=== PATIENT | male | born 1985 | race Caucasian/White ===

== ENCOUNTER 2016-05-12 17:43 | Emergency (ER) | payer OTHER ==
[~2016-05-12] VITALS: Ht 193 cm; Wt 152.1 kg
[2016-05-12 17:44] VITALS: TEMP 36.7; Ht 193 cm; Wt 152.1 kg
[2016-05-12] MEDS ORDERED: DEXAMETHASONE SOD INJ 4 MG/ML VIAL IV STA (19:00)
[2016-05-12] MEDS ORDERED: HYDROmorphone INJ 1 MG/ML SYR IV STA (19:00)
[2016-05-12 19:44] LABS: URINE APPEARANCE CLEAR (CLEAR); URINE BILIRUBIN NEG (NEG); URINE COLOR YELLOW; URINE NITRITE NEG (NEG); UROBILINOGEN NEG (NEG); ZZUR CULT IF INDIC CLEAN CATCH NO
[2016-05-12 19:45] LABS: MANUAL MICROSCOPIC REQUIRED? NO; REVIEW REQ? NO
[2016-05-12] MEDS ORDERED: OXYCODONE IR HOME PACK PO ONE (20:30)
[2016-05-12] MEDS ORDERED: OXYC1TAB3 PO (20:41)
[2016-05-12] MEDS ORDERED: PRED20TA PO (20:41)
--- NOTE | 2016-05-12 20:42 | EMERGENCY ROOM VISIT NOTE ---
ED Visit Note First contact with patient: 18:49 CHIEF COMPLAINT: Low back pain HISTORY OF PRESENT ILLNESS: This 30-year-old male patient presents to the emergency department ambulatory complaining of pain in the low back which began yesterday evening. The patient has a history of back problems and had a surgery performed by Dr. Collins 2 years ago. The patient reports that he developed lower right back pain with radiation into the right buttock and down the right leg last evening and it worsened today. He states this does feel similar to chronic back pain, but it is not as severe as it has been in the past. He rates his overall discomfort a 7/10 at this time. He has not taken anything at home for the pain. He does report he had a flareup of the pain 2 months ago which resolved with pain medication. The patient denies any loss of control of their bowel or bladder functions. There has been no leg numbness or weakness, and no change in sensation. No nausea or vomiting or abdominal pain. No chest pain or shortness of breath. No dysuria or increased urinary frequency. The patient denies any recent trauma. REVIEW OF SYSTEMS: A review of systems was performed with positives and pertinent negatives listed in the history of present illness. All other systems were reviewed and are negative. ALLERGIES: No known drug allergies MEDICATIONS: Fluoxetine, Zestril PMH: Lumbar surgery SOCIAL HISTORY: The patient lives locally with his parents. Nonsmoker, denies alcohol use. PHYSICAL EXAM: VITALS: Vitals are noted on the nurse's note and reviewed by myself. Vital signs stable. GENERAL: This is a 30-year-old male, in no acute distress, nondiaphoretic, well- developed well-nourished. SKIN: The skin was without rashes, erythema, edema, or bruising. Capillary refill less than 2 seconds. NECK: Supple without nuchal rigidity. No cervical spine tenderness. No paraspinous muscle tenderness. HEART: Regular rate and rhythm without murmurs gallops or rubs. LUNGS: Clear to auscultation bilaterally without wheezes, rales or rhonchi. ABDOMEN: Positive bowel sounds x 4. Normal tympanic percussion. Soft, nontender, without masses or organomegaly. Monique sign negative. MUSCULOSKELETAL: No muscle atrophy, erythema, or edema noted of the back. There is no tenderness over the lumbar spinous processes. There is mild tenderness over the right lumbar paraspinous muscles. There is no tenderness over the thoracic spine or paraspinous muscles. There are no muscle spasms present. The patient is slow to move around with maximum tenderness with flexion. Negative straight leg raise test. NEURO: Patient was alert and oriented to person place and time. Normal sensation to light and sharp touch. Deep tendon reflexes 2+ in the lower extremities. Dorsalis pedis pulse 2+ bilaterally. Strength 5/5 and equal in the bilateral lower extremities. EMERGENCY DEPARTMENT COURSE: The patient was evaluated as above. His pain appears to be musculoskeletal in nature. A urinalysis was obtained to rule out kidney stone and was negative. The patient was given 1 mg Dilaudid IM and 10 mg Decadron IM for pain. He will be discharged home with a prescription of pain medication as well as prednisone for his back pain. The [place] prescription drug monitoring program was queried and no red flags were identified. He was instructed to follow-up with Dr. Collins within one to 2 weeks for further evaluation of his back pain. There are no worrisome symptoms to suggest cauda equina syndrome or cord compression. The patient was instructed on worrisome symptoms which would necessitate return to the emergency department. He verbalized understanding of my assessment and treatment plan and was discharged home in good condition. DIAGNOSIS: Acute exacerbation of chronic low back pain Problem List Medical Problems: (1) Hypertension Status: Chronic Surgical Problems: (1) History of lumbar discectomy Status: Resolved Current/Historical Medications Scheduled Fluoxetine (Prozac), 20 MG PO DAILY Lisinopril (Zestril), 20 MG PO DAILY Prednisone (Prednisone), 0 PO DAILY Scheduled PRN Oxycodone Ir (Roxicodone Ir), 1-2 TAB PO Q4H PRN for Pain Allergies Coded Allergies: No Known Allergies (Unverified , 01/26/16) Vital Signs Date Time Temp Pulse Resp B/P Pulse Ox O2 Delivery O2 Flow Rate FiO2 05/12/16 21:25 83 18 127/62 95 05/12/16 19:43 72 18 142/62 96 Room Air 05/12/16 17:44 36.7 106 18 151/95 96 Room Air Laboratory Results Test 05/12/16 18:50 Urine Color YELLOW Urine Appearance CLEAR (CLEAR) Urine pH 6.0 (4.5-7.5) Urine Specific [place] 1.020 (1.000-1.030) Urine Protein NEG (NEG) Urine Glucose (UA) NEG (NEG) Urine Ketones NEG (NEG) Urine Occult Blood NEG (NEG) Urine Nitrite NEG (NEG) Urine Bilirubin NEG (NEG) Urine Urobilinogen NEG (NEG) Urine Leukocyte Esterase NEG (NEG) Medications Administered Medications (Trade) Dose Ordered Sig/Charlie Route Start Time Stop Time Status Last Admin Dose Admin Dexamethasone Sodium Phosphate (Decadron Inj) 10 mg NOW STAT IV 05/12/16 19:00 05/12/16 19:02 DC 05/12/16 19:40 10 MG Hydromorphone HCl (Dilaudid Inj) 1 mg NOW STAT IV 05/12/16 19:00 05/12/16 19:02 DC 05/12/16 19:35 1 MG Oxycodone HCl (Roxicodone Immediate Rel 5MG Home Pack) 1 homepack UD ONCE PO 05/12/16 20:30 05/12/16 20:31 DC 05/12/16 20:30 1 HOMEPACK Departure Information Dispostion Home / Self-Care Condition GOOD Prescriptions Oxycodone Ir (Roxicodone Ir) 5 Mg Tab 1-2 TAB PO Q4H Y for Pain, #15 TAB For Initial Treatment Prov: Tali Beth PA-C 05/12/16 Prednisone (Prednisone) 20 Mg Tab 0 PO DAILY, #18 TAB 3 DAILY FOR 3 DAYS, THEN 2 DAILY FOR 3 DAYS, THEN 1 DAILY FOR 3 DAYS. Prov: Tali Beth PA-C 05/12/16 Referrals Roger Woo D.O. (PCP) Jordan Collins D.O. Patient Instructions My [facility] Additional Instructions You have been treated in the Emergency Department for Back Pain. You have received pain medicine in the emergency department which impairs your ability to operate a vehicle. It is illegal for you to drive after receiving these medicines. You have been prescribed OxyIR to be used for pain control. This is a narcotic medication. You cannot drive or consume alcohol while on this medicine. This medicine should only be used for pain that cannot be controlled with over-the- counter pain medicines. Prednisone as prescribed. For pain control, you can use the following [id number] medicines (if >12 yo): - Regular strength (325mg/tab) Tylenol (acetaminophen) 2 tabs every 4-6 hours as needed. Do not exceed 12 tablets in a 24 hour period. Avoid taking more than 4 grams (4000 mg) of Tylenol per day. This includes any other sources of acetaminophen you may take on a regular basis. - Regular strength (200 mg/tab) Advil (ibuprofen) 1-2 tabs every 4-6 hours as needed. Do not exceed a dose of 3200 mg per day. If this is an acute injury, ice can be applied to the area of pain for the first 3 days to help decrease pain and inflammation. After the first 3 days, a heating pad can be used over the area for continued soothing relief. Call your orthopedic surgeon tomorrow to schedule follow-up. Return to the Emergency Department if your current symptoms worsen despite treatment course outlined above, or if you develop any of the following symptoms : intractable pain despite aforementioned treatment course, loss of control of your bowel or bladder, numbness or tingling in your groin, or development of a fever.
[2016-05-12 21:25] VITALS: BP 127/62; PULSE 83; O2SAT 95
[2016-10-02] MEDS ORDERED: LISI-725 PO (14:45)
== END 2016-05-12 21:27 | disposition home or self-care (01) ==
LOC: C.EDB 17:43 → C.EDC 21:27
DX: M54.5 Low back pain (principal); G89.29 Other chronic pain; I10 Essential (primary) hypertension; Z79.899 Other long term (current) drug therapy

== ENCOUNTER 2016-08-16 13:09 | Emergency (ER) | payer OTHER ==
[~2016-08-16] VITALS: Ht 193 cm; Wt 155.4 kg
[~2016-08-16 13:09] MED LIST: OXYC1TAB3 PO; PRED20TA PO
[2016-08-16 13:12] VITALS: TEMP 36.7; Ht 193 cm; Wt 155.4 kg
[2016-08-16] MEDS ORDERED: IBUPROFEN 800 MG TAB PO STA (13:27)
[2016-08-16] MEDS ORDERED: TRAMADOL HCL 50 MG TAB PO STA (13:27)
--- NOTE | 2016-08-16 14:18 | DIAGNOSTIC IMAGING REPORT ---
RIGHT KNEE 3 VIEWS CLINICAL HISTORY: Right knee pain. COMPARISON: None FINDINGS: Alignment of the right knee is anatomic. No fracture or suspicious lesion is evident. There is a possible small right knee joint effusion. IMPRESSION: 1. No acute fracture. 2. Possible small right knee joint effusion. Electronically signed by: Matheus Pelaez M.D. 08/16/2016 2:16 PM Dictated Date/Time: 08/16/2016 2:15 PM
[2016-08-16 14:57] VITALS: BP 154/91; PULSE 84; O2SAT 96
--- NOTE | 2016-08-16 15:58 | EMERGENCY ROOM VISIT NOTE ---
History First contact with patient: 13:20 Chief Complaint: KNEEPAIN Stated Complaint: RIGHT KNEE PAIN History of Present Illness The patient is a 30 year old male who presents to the Emergency Room with complaints of right medial knee pain since Wednesday. 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 When he woke up Wednesday, he could barely walk because of the discomfort. The patient denies any noticeable swelling of the knee. He reports that flexion and extension of the knee worsens his discomfort with an occasional popping sensation. He has not noticed any locking of the knee. He has had knee problems before in the past, but has not had an orthopedic evaluation. He currently denies any pain extending into the thigh or leg, and rates his discomfort a 6 out of 10. Review of Systems 10 system review was performed and was negative except for pertinent positives and negatives as indicated in history of present illness Past Medical/Surgical History Medical Problems: (1) Hypertension Surgical Problems: (1) History of lumbar discectomy Family History Diabetes mellitus FHx: cancer FHx: heart disease Hypertension Seizures Social History Smoking Status: Never Smoker Alcohol Use: occasionally Drug Use: none Marital Status: Housing Status: lives with family Occupation Status: employed Current/Historical Medications Scheduled Fluoxetine (Prozac), 20 MG PO DAILY Lisinopril (Zestril), 20 MG PO DAILY Allergies Coded Allergies: No Known Allergies (Unverified , 01/26/16) Physical Exam Vital Signs Date Time Temp Pulse Resp B/P Pulse Ox O2 Delivery O2 Flow Rate FiO2 08/16/16 14:57 84 20 154/91 96 08/16/16 13:12 36.7 94 20 155/86 95 Room Air Physical Exam CONSTITUTIONAL: Healthy and well nourished. Alert and oriented X 3 with positive affect. HEENT: Normocephalic, atraumatic. Pupils equal, round and reactive. NECK: Full active range of motion without discomfort. MUSCULOSKELETAL: Examination of the right knee shows notable tenderness to palpation over the anteromedial joint line. Range of motion worsens his discomfort. He also has worsened discomfort with valgus stress at 30 of flexion when compared to at full extension. Negative anterior draw, negative posterior drawer. No popliteal masses or obvious joint effusion on exam. No tenderness to palpation about the patella, hamstrings or proximal fibula. Distal pulses are intact. INTEGUMENTARY: No rash or other significant dermatologic conditions noted. NEUROLOGIC: Right foot and toes are sensory intact. Medical Decision & Procedures ER Provider Diagnostic Interpretation: My interpretation of right knee x-rays does not show any obvious fractures, avulsions, dislocation or joint effusion. Radiologist report is as follows: RIGHT KNEE 3 VIEWS CLINICAL HISTORY: Right knee pain. COMPARISON: None FINDINGS: Alignment of the right knee is anatomic. No fracture or suspicious lesion is evident. There is a possible small right knee joint effusion. IMPRESSION: 1. No acute fracture. 2. Possible small right knee joint effusion. Medications Administered Medications (Trade) Dose Ordered Sig/Charlie Route Start Time Stop Time Status Last Admin Dose Admin Ibuprofen (Motrin Tab) 800 mg NOW STAT PO 08/16/16 13:27 08/16/16 13:29 DC 08/16/16 13:51 800 MG Tramadol HCl (Ultram Tab) 50 mg ONE STAT PO 08/16/16 13:27 08/16/16 13:29 DC 08/16/16 13:52 50 MG ED Course Patient history and physical exam were performed. Nurse's notes were reviewed. The patient was administered ibuprofen for pain. X-rays of the right knee were normal. The patient was advised that his clinical exam is consistent with an MCL sprain. A knee immobilizer and crutches were dispensed. The patient was encouraged to intermittently apply ice and elevate the knee for swelling. Ibuprofen or Tylenol as needed for pain. The patient refused any prescription analgesics. He was instructed to follow-up with orthopedics for further reevaluation and management. The patient was happy with plan of care, voiced understanding of all discharge instructions, and rated his pain a 3 out of 10 at the time of discharge. Medical Decision Impression Primary Impression: Sprain of medial collateral ligament of right knee Departure Information Referrals Roger Woo D.O. (PCP) Patient Instructions My [facility] Problem Qualifiers Primary Impression: Sprain of medial collateral ligament of right knee Encounter type: initial encounter Qualified Codes: S83.411A - Sprain of medial collateral ligament of right knee, initial encounter
[2016-10-02] MEDS ORDERED: LISI-725 PO (14:45)
[2017-02-07] MEDS ORDERED: PRED50TA PO (22:18)
== END 2016-08-16 14:58 | disposition home or self-care (01) ==
LOC: C.EDB 13:10 → C.EDD 14:58
DX: S83.411A Sprain of medial collateral ligament of right knee, initial encounter (principal); X58.XXXA Exposure to other specified factors, initial encounter; I10 Essential (primary) hypertension; Z79.899 Other long term (current) drug therapy; Z98.890 Other specified postprocedural states; Z83.3 Family history of diabetes mellitus; Z80.9 Family history of malignant neoplasm, unspecified; Z82.49 Family history of ischemic heart disease and other diseases of the circulatory system; Z82.0 Family history of epilepsy and other diseases of the nervous system

== ENCOUNTER 2016-10-02 20:59 | Emergency (ER) | payer OTHER ==
[~2016-10-02] VITALS: Ht 193 cm; Wt 149.3 kg
[~2016-10-02 20:59] MED LIST changes: +LISI-725 PO; -OXYC1TAB3 PO; -PRED20TA PO
[2016-10-02 21:01] VITALS: TEMP 36.7; Ht 193 cm; Wt 149.3 kg
[2016-10-02] MEDS ORDERED: NAPR1TAB9 PO (21:17)
[2016-10-02] MEDS ORDERED: IBUP-103 PO (21:17)
[2016-10-02] MEDS ORDERED: FLEXERIL HOME PACK 10 MG VIAL PO ONE (21:45)
[2016-10-02] MEDS ORDERED: DEXAMETHASONE SOD INJ 4 MG/ML VIAL IM ONE (21:45)
[2016-10-02] MEDS ORDERED: FLUO20CA35 PO (22:01)
[2016-10-02] MEDS ORDERED: CYCL10TA6 PO (22:08)
[2016-10-02] MEDS ORDERED: METH4PAK PO (22:08)
--- NOTE | 2016-10-02 22:09 | EMERGENCY ROOM VISIT NOTE ---
ED Visit Note First contact with patient: 21:08 CHIEF COMPLAINT: Low back pain HISTORY OF PRESENT ILLNESS: This 30-year-old male patient presents to the emergency department ambulatory complaining of pain in the low back which began this evening while he was driving home from work. The patient states that the pain is located in the right lower back and is shooting down the right leg. He rates the discomfort an 8/10 and states it has been gradually worsening. He has occasional sharp, spasming pains. He took ibuprofen and applied ice and heat to the pain without relief. The patient denies any loss of control of their bowel or bladder functions. There has been no leg numbness or weakness, and no change in sensation. No nausea or vomiting or abdominal pain. No chest pain or shortness of breath. No dysuria or increased urinary frequency. The patient does have a history of back problems and has previously seen Dr. Collins , but states he has not followed up with him for several years. REVIEW OF SYSTEMS: A review of systems was performed with positives and pertinent negatives listed in the history of present illness. All other systems were reviewed and are negative. ALLERGIES: No known drug allergies MEDICATIONS: See med list PMH: No significant past medical history. SOCIAL HISTORY: The patient lives locally with family. PHYSICAL EXAM: VITALS: Vitals are noted on the nurse's note and reviewed by myself. Vital signs stable. GENERAL: This is a 30-year-old male, in no acute distress, nondiaphoretic, well- developed well-nourished. SKIN: The skin was without rashes, erythema, edema, or bruising. Capillary refill less than 2 seconds. NECK: Supple without nuchal rigidity. No cervical spine tenderness. No paraspinous muscle tenderness. HEART: Regular rate and rhythm without murmurs gallops or rubs. LUNGS: Clear to auscultation bilaterally without wheezes, rales or rhonchi. ABDOMEN: Positive bowel sounds x 4. Normal tympanic percussion. Soft, nontender, without masses or organomegaly. Monique sign negative. MUSCULOSKELETAL: No muscle atrophy, erythema, or edema noted of the back. There is no tenderness over the lumbar spinous processes. There is tenderness over the right lumbar paraspinous muscles. There is no tenderness over the thoracic spine or paraspinous muscles. There are no muscle spasms present. The patient is slow to move around with maximum tenderness with flexion. Negative straight leg raise test. NEURO: Patient was alert and oriented to person place and time. Normal sensation to light and sharp touch. Deep tendon reflexes 2+ in the lower extremities. Dorsalis pedis pulse 2+ bilaterally. Strength 5/5 and equal in the bilateral lower extremities. EMERGENCY DEPARTMENT COURSE: The patient was evaluated as above. He has right lower back pain radiating down the right leg. The patient does have a history of back problems. Symptoms are consistent with lumbar radiculopathy. He was given 10 mg Decadron IM. The patient will be placed on a Medrol Dosepak and Flexeril for symptoms. He was instructed to follow-up with his back specialist for further evaluation and treatment of his symptoms. He will return here for any new/concerning symptoms or as needed. He verbalized understanding of my assessment and treatment plan and was discharged home in good condition. Medication reconciliation: I attest that I have personally reviewed the patient 's current medication list. Blood Pressure Screening: Patient was found to have a slightly elevated blood pressure due to circumstances. I do not believe that the patient requires hypertension monitoring. DIAGNOSIS: Lumbar radiculopathy Problem List Medical Problems: (1) Hypertension Status: Chronic Surgical Problems: (1) History of lumbar discectomy Status: Resolved Current/Historical Medications Scheduled Cyclobenzaprine Hcl (Flexeril), 10 MG PO TID Fluoxetine (Prozac), 20 MG PO DAILY Ibuprofen Tab (Advil), 800 MG PO TID Lisinopril (Zestril), 20 MG PO DAILY Methylprednisolone (Medrol Dosepak), 0 PO DAILY Scheduled PRN Naproxen (Aleve), 440 MG PO BID PRN for Pain Allergies Coded Allergies: No Known Allergies (Unverified , 01/26/16) Vital Signs Date Time Temp Pulse Resp B/P (MAP) Pulse Ox O2 Delivery O2 Flow Rate FiO2 10/02/16 22:14 77 18 147/64 96 10/02/16 21:01 36.7 75 18 141/67 96 Room Air Medications Administered Medications (Trade) Dose Ordered Sig/Charlie Route Start Time Stop Time Status Last Admin Dose Admin Dexamethasone Sodium Phosphate (Decadron Inj) 10 mg NOW ONCE IM 10/02/16 21:45 10/02/16 21:46 DC 10/02/16 21:44 10 MG Cyclobenzaprine HCl (FLEXERIL 10MG Home Pack) 1 homepack UD ONCE PO 10/02/16 21:45 10/02/16 21:46 DC 10/02/16 22:11 1 HOMEPACK Departure Information Impression Primary Impression: Right lumbar radiculopathy Dispostion Home / Self-Care Condition GOOD Prescriptions Cyclobenzaprine Hcl (FLEXERIL) 10 Mg Tab 10 MG PO TID for 3 Days, #9 TAB Prov: Tali Beth PA-C 10/02/16 Methylprednisolone (MEDROL DOSEPAK) 4 Mg Hilario 0 PO DAILY, #1 PKT Prov: Tali Beth PA-C 10/02/16 Referrals Roger Woo D.O. (PCP) Jordan Collins D.O. Patient Instructions My [facility] Additional Instructions You have been treated in the Emergency Department for Back Pain. Medrol Dosepak as prescribed. You have been prescribed Flexeril (cyclobenzaprine) 1-2 tabs orally, three times per day. Do NOT exceed 30 mg (6 tabs) per day. Take your first dose at bedtime as it can make you drowsy. Always take all medications as prescribed. For pain control, you can use the following [id number] medicines (if >12 yo): - Regular strength (325mg/tab) Tylenol (acetaminophen) 2 tabs every 4-6 hours as needed. Do not exceed 12 tablets in a 24 hour period. Avoid taking more than 4 grams (4000 mg) of Tylenol per day. This includes any other sources of acetaminophen you may take on a regular basis. - Regular strength (200 mg/tab) Advil (ibuprofen) 1-2 tabs every 4-6 hours as needed. Do not exceed a dose of 3200 mg per day. If this is an acute injury, ice can be applied to the area of pain for the first 3 days to help decrease pain and inflammation. After the first 3 days, a heating pad can be used over the area for continued soothing relief. You should schedule a follow-up appointment in 2-3 days with your Primary Care Provider for further evaluation and treatment of your back pain. Follow-up with Dr. Collins. Return to the Emergency Department if your current symptoms worsen despite treatment course outlined above, or if you develop any of the following symptoms : intractable pain despite aforementioned treatment course, loss of control of your bowel or bladder, numbness or tingling in your groin, or development of a fever.
[2016-10-02 22:14] VITALS: BP 147/64; PULSE 77; O2SAT 96
[2016-10-03] MEDS ORDERED: HYDR-5688 PO (08:44)
== END 2016-10-02 22:15 | disposition home or self-care (01) ==
LOC: C.EDB 20:59 → C.EDD 22:15
DX: M54.16 Radiculopathy, lumbar region (principal); I10 Essential (primary) hypertension

== ENCOUNTER 2016-10-03 08:02 | Emergency (ER) | payer OTHER ==
[~2016-10-03] VITALS: Ht 193 cm; Wt 105.0 kg
[~2016-10-03 08:02] MED LIST changes: +CYCL10TA6 PO; +FLUO20CA35 PO; +IBUP-103 PO; +METH4PAK PO; +NAPR1TAB9 PO
[2016-10-03 08:07] VITALS: TEMP 36.6; Ht 193 cm; Wt 105.0 kg
[2016-10-03] MEDS ORDERED: KETOROLAC TROMETHAMINE 60 MG/2 ML VIAL IM STA (08:31)
[2016-10-03] MEDS ORDERED: HYDR-5688 PO (08:44)
[2016-10-03] MEDS ORDERED: HYDROCODONE/ACETAMOPHEN 5/325MG TAB PO ONE (08:45)
[2016-10-03 08:49] VITALS: BP 148/74; PULSE 75; O2SAT 98
--- NOTE | 2016-10-04 07:19 | EMERGENCY ROOM VISIT NOTE ---
History First contact with patient: 08:16 Chief Complaint: LEG PAIN,LEG INJURY Stated Complaint: SEVERE R LEG PAIN WITH NUMBNESS History of Present Illness The patient is a 30 year old male who presents to the Emergency Room with complaints of severe right low back pain with radiation to his right leg. Patient was seen here yesterday. Symptoms started yesterday while sitting in his vehicle. He states yesterday he was doing some digging with a shovel and using a digging bar. There was no pain at that time. There was no direct trauma. He did not fall. Symptoms became worse last night and he was seen in the knee. He was given Flexeril and prednisone. He has not started the prednisone. He states the Flexeril did not help. He had significant difficulty attempting to get out of bed this morning and required the help of four additional people. No loss of bowel or bladder control. He does have a distant history of lumbar back surgery in 2014. He has known multilevel disc disease from previous MRI in April 2015. No symptoms of the left leg. Review of Systems REVIEW OF SYSTEM: HEENT: No dizziness, visual problems, hearing loss, or tinnitus. There is no difficulty swallowing and no oral lesions are present. PULMONARY: No cough, shortness of breath, sputum production or hemoptysis. CARDIOVASCULAR: No chest pain, palpitations, shortness of breath or peripheral edema. GASTROINTESTINAL: No diarrhea, constipation, nausea, vomiting, or abdominal pain. GENITOURINARY: No dysuria, frequency, urgency or nocturia. NEUROLOGIC: No weakness, muscle tenderness, epilepsy or history of neurological problems. MUSCULOSKELETAL: No history of joint tenderness/swelling. No history of arthritis or arthralgias. SKIN: No rashes or lesions. ENDOCRINE: No history of diabetes, thyroid disorders, or abnormal hair growth. Past Medical/Surgical History Medical Problems: (1) Hypertension Surgical Problems: (1) History of lumbar discectomy Family History Diabetes mellitus FHx: cancer FHx: heart disease Hypertension Seizures Social History Smoking Status: Never Smoker Smokeless Tobacco Use: No Alcohol Use: occasionally Drug Use: none Marital Status: Housing Status: lives with family Occupation Status: employed Current/Historical Medications Scheduled Cyclobenzaprine Hcl (Flexeril), 10 MG PO TID Fluoxetine (Prozac), 20 MG PO DAILY Ibuprofen Tab (Advil), 800 MG PO TID Lisinopril (Zestril), 20 MG PO DAILY Methylprednisolone (Medrol Dosepak), 0 PO DAILY Scheduled PRN Hydrocodone/Acetaminophen 5MG/325MG ([place] 5MG/325MG), 1-2 TABLET PO Q6H PRN for Pain Naproxen (Aleve), 440 MG PO BID PRN for Pain Allergies Coded Allergies: No Known Allergies (Unverified , 01/26/16) Physical Exam Vital Signs Date Time Temp Pulse Resp B/P (MAP) Pulse Ox O2 Delivery O2 Flow Rate FiO2 10/03/16 08:49 75 16 148/74 98 10/03/16 08:07 36.6 106 18 135/87 97 Room Air Pain Rating (0-10): 10.0 Physical Exam Gen.: Well-developed, well-nourished, young white male, in obvious discomfort. Sitting on a bed. Alert and oriented. No acute distress. Very large male. Skin:Warm and dry with good turgor. No rashes or lesions. No ecchymosis or erythema. The patient is not diaphoretic. No abrasions. Several tattoos. Musculoskeletal: Patient has no discomfort with palpation over his lumbar vertebrae or discs spaces. No pain with palpation over the upper portion of the right paraspinal musculature. He does have pain around the L5 level and PSIS on the right. No pain or spasm in the musculature on the left. No pain over the SI joint. His focus of discomfort is over the right SI joint extending into the gluteus. There is pain over the ischial tuberosity. Pressure at the sciatic notch causes an increase in neurologic symptoms in the right leg. Intact motor function to the ankle, knee, and hip. Ambulatory with an antalgic gait. Neurologic: Gross sensation is intact across both lower extremities by soft touch. Medical Decision & Procedures Medications Administered Medications (Trade) Dose Ordered Sig/Charlie Route Start Time Stop Time Status Last Admin Dose Admin Ketorolac Tromethamine (Toradol Inj) 60 mg NOW STAT IM 10/03/16 08:31 10/03/16 08:33 DC 10/03/16 08:42 60 MG Acetaminophen/ Hydrocodone Bitart (Av[place] 5/325 Tab) 2 tab ONE ONCE PO 10/03/16 08:45 10/03/16 08:46 DC 10/03/16 08:41 2 TAB Toradol 60 mg IM, Avoca 5 mg by mouth 2 ED Course Patient and his were educated regarding today's findings. Conservative care measures were discussed. He was reassured that I do not suspect worsening disc disease. Symptoms are likely related to his SI joint and sciatic nerve. He may benefit from child care development specialist or physical therapy on his low back. Patient did receive Toradol 60 mg IM and 2 tablets of Avoca for pain control. Additional prescription for Avoca was provided. Driving precautions were given. Avoid any heavy lifting. Return to the ED for any acute changes including loss of bowel or bladder control. Proper sleeping positions were discussed. Medical Decision Possibility of degenerative disc disease, nerve root impingement, and SI joint dysfunction, sciatica, disc herniation, and facet syndrome were considered among others. [place] Drug Monitoring Program Search Results: patient reviewed within database Impression Primary Impression: Sacroiliac joint dysfunction of right side Departure Information Dispostion Home / Self-Care Prescriptions Hydrocodone/Acetaminophen 5MG/325MG (Av[place] 5MG/325MG) Tab 1-2 TABLET PO Q6H Y for Pain, #15 TAB For Initial Treatment Prov: Newton Loco,P.A. 10/03/16 Forms HOME CARE DOCUMENTATION FORM, SPECIAL NARCOTICS INSTRUCTIONS, IMPORTANT VISIT INFORMATION Patient Instructions My [employer] Additional Instructions Gentle stretching daily Ice intermittently 3 days, then use moist heat Flexeril every 8 hours as needed for spasm Avoca one to 2 tablets every 6 hours as needed for more severe pain-no driving Start your prednisone as soon as possible Avoid any heavy lifting, shoveling, or twisting Bend at the knees, not at the waist Chiropractic or physical therapy may be of benefit Follow-up with your PCP as needed or return to the ED for any acute worsening symptoms
== END 2016-10-03 08:55 | disposition home or self-care (01) ==
LOC: C.EDB 08:05
DX: M53.3 Sacrococcygeal disorders, not elsewhere classified (principal); I10 Essential (primary) hypertension; Z83.3 Family history of diabetes mellitus; Z80.9 Family history of malignant neoplasm, unspecified; Z82.49 Family history of ischemic heart disease and other diseases of the circulatory system; Z82.0 Family history of epilepsy and other diseases of the nervous system; Z79.899 Other long term (current) drug therapy

== ENCOUNTER 2017-11-08 21:20 | Emergency (ER) | payer OTHER ==
[~2017-11-08] VITALS: Ht 193 cm; Wt 154.4 kg
[~2017-11-08 21:20] MED LIST changes: -CYCL10TA6 PO; -METH4PAK PO
[2017-11-08 21:26] VITALS: TEMP 36.7; Ht 193 cm; Wt 154.4 kg
[2017-11-08] MEDS ORDERED: KETOROLAC TROMETHAMINE 30 MG/ML VIAL IV STA (21:53)
[2017-11-08] MEDS ORDERED: SODIUM CHLORIDE 0.9% 1000ML 1,000 ML IV ONE (22:00)
[2017-11-08 22:07] LABS: BASO % 0.3 %; BASO ABS # 0.03 K/uL (0-0.2); EOS % 1.4 %; EOS ABS # 0.14 K/uL (0-0.5); HEMATOCRIT 43.1 % (42-52); HEMOGLOBIN 14.9 g/dL (14.0-18.0); IG# 0.02 K/uL (0.00-0.02); LYMPH % 36.5 %; LYMPH ABS # 3.59 K/uL (1.2-3.4); MEAN CELL VOLUME 84.7 fL (80-100); MEAN CORPUSCULAR HEMOGLOBIN 29.3 pg (25-34); MEAN CORPUSCULAR HGB CONC 34.6 g/dl (32-36); MEAN PLATELET VOLUME 9.6 fL (7.4-10.4); MONO % 12.1 %; MONO ABS # 1.19 K/uL (0.11-0.59); NEUT % 49.5 %; NEUT ABS # 4.87 K/uL (1.4-6.5); PLATELET COUNT 265 K/uL (130-400); RED CELL DISTRIBUTION WIDTH CV 13.2 % (11.5-14.5); RED CELL DISTRIBUTION WIDTH SD 40.9 fL (36.4-46.3); WHITE BLOOD COUNT 9.84 K/uL (4.8-10.8)
[2017-11-08] MEDS ORDERED: FLUO40CA8 PO (22:09)
[2017-11-08 22:41] LABS: ALBUMIN 4.1 gm/dl (3.4-5.0); CALCIUM 9.1 mg/dl (8.5-10.1); CREATININE 0.94 mg/dl (0.60-1.40); POTASSIUM 3.7 mmol/L (3.5-5.1); TOTAL PROTEIN 7.9 gm/dl (6.4-8.2)
[2017-11-08 23:45] VITALS: BP 132/78; PULSE 83; O2SAT 98
--- NOTE | 2017-11-09 03:33 | EMERGENCY ROOM VISIT NOTE ---
History First contact with patient: 21:40 Chief Complaint: CHEST PAIN Stated Complaint: R ARM NUMBNESS AND CHEST PAIN Nursing Triage Summary: Ambulates to room. Pt reports right arm numbness for a couple of days. Reports onset of right sided chest heaviness, pressure that worsens with a deep breath today. History of Present Illness The patient is a 31 year old male who presents to the Emergency Room with complaints of right-sided chest pain that has been ongoing over the past 16 or 17 hours. The patient states the pain worsens with a deep breath. 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 He additionally reports having some numbness into his right thumb, second finger, and middle finger that has been going on for the past 2 weeks. He states these symptoms come and go and do not appear to improve or worsen with activity. The patient has not had fever or chills. He did take Advil last night which did improve his hand and chest discomfort, however it persisted this morning. He has not taken anything in several hours for his pain. He is not diabetic and does not have a past history of cardiopulmonary disease. He does have chronic back pain. He rates his current discomfort a 6/10. Review of Systems More than 10 systems were reviewed and otherwise negative with the exception of history of present illness. Past Medical/Surgical History Medical Problems: (1) Hypertension Surgical Problems: (1) History of lumbar discectomy Family History Diabetes mellitus FHx: cancer FHx: heart disease Hypertension Seizures Social History Smoking Status: Never Smoker Alcohol Use: occasionally Drug Use: none Marital Status: Housing Status: lives with family Occupation Status: employed Current/Historical Medications Scheduled Fluoxetine (Prozac), 40 MG PO DAILY Lisinopril (Zestril), 20 MG PO DAILY Physical Exam Vital Signs Date Time Temp Pulse Resp B/P (MAP) Pulse Ox O2 Delivery O2 Flow Rate FiO2 11/08/17 23:45 83 132/78 98 Room Air 11/08/17 23:09 Room Air 11/08/17 22:41 75 17 143/74 98 Room Air 11/08/17 21:54 83 11/08/17 21:45 Room Air 11/08/17 21:26 36.7 71 18 147/86 95 Room Air Physical Exam VITALS: Vitals are noted on the nurse's note and reviewed by myself. Vital signs stable. GENERAL: Well-developed, well-nourished, white male, who is in no acute distress and resting comfortably. Patient is cooperative with the examination. HEAD: Normocephalic atraumatic. EARS: External ear normal. External auditory canals clear, tympanic membranes pearly macdonald without erythema or effusion bilaterally. EYES: Pupils equal round and reactive to light and accommodation. Conjunctivae without injection, sclerae without icterus. Extraocular movements intact. NOSE: Patent, turbinates without inflammation or discharge. MOUTH: Mucous membranes moist. Tonsils are not enlarged. Pharynx without erythema, blood, or exudate. Uvula midline. Airway patent. NECK: Supple without nuchal rigidity. No lymphadenopathy. No thyromegaly. Cervical spine is nontender. HEART: Regular rate and rhythm without murmurs gallops or rubs. LUNGS: Clear to auscultation bilaterally without wheezes, rales or rhonchi. No retractions or accessory muscle use. ABDOMEN: Positive normal bowel sounds x 4. Soft, nontender, without masses or organomegaly. No guarding or rebound tenderness. MUSCULOSKELETAL: No muscle atrophy, erythema, or edema noted. Full range of motion in all extremities. No tenderness to palpation. Normal gait. Banquet Steward strength is 5/5 to the right upper extremity. No objective numbness is noted. NEURO: Patient was alert and oriented to person place and time. CN II through XII grossly intact. No focal neurological deficits. Medical Decision & Procedures Laboratory Results 11/08/17 21:45 Red Blood Count 5.09, Mean Corpuscular Volume 84.7, Mean Corpuscular Hemoglobin 29.3, Mean Corpuscular Hemoglobin Concent 34.6, Mean Platelet Volume 9.6, Neutrophils (%) (Auto) 49.5, Lymphocytes (%) (Auto) 36.5, Monocytes (%) (Auto) 12.1, Eosinophils (%) (Auto) 1.4, Basophils (%) (Auto) 0.3, Neutrophils # (Auto ) 4.87, Lymphocytes # (Auto) 3.59, Monocytes # (Auto) 1.19, Eosinophils # (Auto ) 0.14, Basophils # (Auto) 0.03 11/08/17 21:45 Test 11/08/17 21:45 11/08/17 22:36 11/08/17 22:50 White Blood Count 9.84 K/uL (4.8-10.8) Red Blood Count 5.09 M/uL (4.7-6.1) Hemoglobin 14.9 g/dL (14.0-18.0) Hematocrit 43.1 % (42-52) Mean Corpuscular Volume 84.7 fL (80-100) Mean Corpuscular Hemoglobin 29.3 pg (25-34) Mean Corpuscular Hemoglobin Concent 34.6 g/dl (32-36) Platelet Count 265 K/uL (130-400) Mean Platelet Volume 9.6 fL (7.4-10.4) Neutrophils (%) (Auto) 49.5 % Lymphocytes (%) (Auto) 36.5 % Monocytes (%) (Auto) 12.1 % Eosinophils (%) (Auto) 1.4 % Basophils (%) (Auto) 0.3 % Neutrophils # (Auto) 4.87 K/uL (1.4-6.5) Lymphocytes # (Auto) 3.59 K/uL (1.2-3.4) Monocytes # (Auto) 1.19 K/uL (0.11-0.59) Eosinophils # (Auto) 0.14 K/uL (0-0.5) Basophils # (Auto) 0.03 K/uL (0-0.2) RDW Standard Deviation 40.9 fL (36.4-46.3) RDW Coefficient of Variation 13.2 % (11.5-14.5) Immature Granulocyte % (Auto) 0.2 % Immature Granulocyte # (Auto) 0.02 K/uL (0.00-0.02) Anion Gap 8.0 mmol/L (3-11) Est Creatinine Clear Calc Drug Dose 183.3 ml/min Estimated GFR () 124.7 Estimated GFR (Non- 107.6 BUN/Creatinine Ratio 17.2 (10-20) Calcium Level 9.1 mg/dl (8.5-10.1) Magnesium Level 2.0 mg/dl (1.8-2.4) Total Bilirubin 0.2 mg/dl (0.2-1) Aspartate Amino Transf (AST/SGOT) 22 U/L (15-37) Alanine Aminotransferase (ALT/SGPT) 38 U/L (12-78) Alkaline Phosphatase 95 U/L (45-117) Total Protein 7.9 gm/dl (6.4-8.2) Albumin 4.1 gm/dl (3.4-5.0) Globulin 3.8 gm/dl (2.5-4.0) Albumin/Globulin Ratio 1.1 (0.9-2) Lipase 98 U/L (73-393) Thyroid Stimulating Hormone (TSH) 1.870 uIu/ml (0.300-4.500) Lyme Disease IgG Antibody NEG (NEG) Lyme Disease IgM Antibody NEG (NEG) Bedside D-Dimer 181 ng/mlFEU (0-450) Bedside Troponin I < 0.030 ng/ml (0-0.045) Urine Color YELLOW Urine Appearance CLEAR (CLEAR) Urine pH 5.0 (4.5-7.5) Urine Specific [place] 1.021 (1.000-1.030) Urine Protein NEG (NEG) Urine Glucose (UA) NEG (NEG) Urine Ketones NEG (NEG) Urine Occult Blood NEG (NEG) Urine Nitrite NEG (NEG) Urine Bilirubin NEG (NEG) Urine Urobilinogen NEG (NEG) Urine Leukocyte Esterase NEG (NEG) Medications Administered Medications (Trade) Dose Ordered Sig/Cahrlie Route Start Time Stop Time Status Last Admin Dose Admin Sodium Chloride 1,000 ml @ 999 mls/hr Q1H1M ONCE IV 11/08/17 22:00 11/08/17 23:00 DC 11/08/17 22:39 999 MLS/HR Ketorolac Tromethamine (Toradol Inj) 30 mg NOW STAT IV 11/08/17 21:53 11/08/17 21:55 DC 11/08/17 22:39 30 MG ED Course Physical exam and history were performed. Nursing notes, EMR, and Medication List were personally reviewed. Patient appears to have right-sided chest pain as well as numbness and tingling into his right hand that is intermittent. EKG was performed and was normal sinus rhythm without ST elevation or ectopy per my interpretation. IV access was established and labs were obtained. The patient was hydrated and medicated as above. The patient's blood work is as above and was reviewed. He does not have a significantly elevated white blood cell count, gross anemia, bandemia, or significant electrolyte imbalance. Lipase and transaminases are not. Troponin and d-dimer were both negative. X-rays of the chest and neck were reviewed by myself and my attending as showing no acute process. On reevaluation the patient remains very comfortable and certainly not toxic. I discussed options of care with the patient, and he does appear comfortable with discharge home. I suspect that his chest discomfort is likely musculoskeletal in nature as it did improve earlier with ibuprofen. His hand symptoms seem to correlate with a cervical radiculopathy, or possibly a carpal tunnel like process. I explained the importance of following with his primary care physician for both items. The patient was certainly invited back to the ER with any new, worsening, or concerning symptoms. He was pleased with plan of care and rated his discomfort as 0/10 at the time of departure. The chart was completed utilizing [employer] Speech Voice Recognition Software. Grammatical errors, random word insertions, pronoun errors, and incomplete sentences are an occasional consequence of this system due to software limitations, ambient noise, and hardware issues. Any formal questions or concerns about the content, text, or information contained within the body of this dictation should be directly addressed to the provider for clarification. . Medical Decision Differential diagnosis: Etiologies such as cardiac ischemia, aortic dissection, pulmonary embolism, pneumonia, pneumothorax, musculoskeletal, infections, pericarditis, myocarditis , esophageal rupture, gastrointestinal, as well as others were entertained. Impression Primary Impression: Non-cardiac chest pain Departure Information Dispostion Home / Self-Care Condition GOOD Forms Call Back Authorization, HOME CARE DOCUMENTATION FORM, Work Instructions, Additional Instructions: Patient was seen and evaluated today in the emergency department fo medical care. Return to work on 11/10/2017. Please excuse. IMPORTANT VISIT INFORMATION Patient Instructions My [facility] Additional Instructions You were seen and evaluated today on an emergency basis only. This is not a substitute for, or an effort to provide, complete comprehensive medical care. It is not possible to recognize and treat all injuries or illnesses in a single emergency department visit. For this reason it is recommended that you followup with your primary care physician this week with any ongoing or persisting symptoms. For baseline pain relief you may alternate ibuprofen and acetaminophen every 4 hours for pain control. Take 600 mg ibuprofen (Advil) and then 4 hours later take 1000 mg acetaminophen (Tylenol). Do not take more than 3000 mg acetaminophen in a single day. You are welcome to return to the emergency department anytime with new, worsening, or concerning symptoms. Work Instructions Additional Work Instructions: Patient was seen and evaluated today in the emergency department for medical care. Return to work on 11/10/2017. Please excuse.
--- NOTE | 2017-11-09 06:27 | DIAGNOSTIC IMAGING REPORT ---
CHEST 2 VIEWS ROUTINE CLINICAL HISTORY: right side chest wall pains pain COMPARISON STUDY: No previous studies for comparison. FINDINGS: The bones soft tissues and hemidiaphragms are normal. The cardiomediastinal silhouette is normal. The lungs are clear. The pulmonary vasculature is normal. IMPRESSION: Negative chest. The above report was generated using voice recognition software. It may contain grammatical, syntax or spelling errors. Electronically signed by: Jam Hooper M.D. 11/09/2017 6:25 AM Dictated Date/Time: 11/09/2017 6:25 AM
--- NOTE | 2017-11-09 06:32 | DIAGNOSTIC IMAGING REPORT ---
C-SPINE ROUTINE 4 OR 5 VIEWS HISTORY: Pain. Neuropathy. Right hand numbness COMPARISON: None. FINDINGS: The cervical spine is visualized from C1 through the superior endplate of T1. There is no fracture. No subluxation. Disc spaces are preserved. Prevertebral soft tissues and the atlantodens interval are intact. IMPRESSION: No fracture or subluxation within the cervical spine. The above report was generated using voice recognition software. It may contain grammatical, syntax or spelling errors. Electronically signed by: Jam Hooper M.D. 11/09/2017 6:30 AM Dictated Date/Time: 11/09/2017 6:30 AM
== END 2017-11-09 | disposition home or self-care (01) ==
LOC: C.EDB 21:21 → C.EDC 11-09
DX: R07.89 Other chest pain (principal); R29.898 Other symptoms and signs involving the musculoskeletal system; I10 Essential (primary) hypertension; Z82.49 Family history of ischemic heart disease and other diseases of the circulatory system